=== PATIENT | female | born 1995 | race Caucasian/White ===

== ENCOUNTER → 2020-12-11 | Outpatient (CLI) | payer OTHER ==
--- NOTE | 2020-12-11 12:01 | US ---
EXAMINATION TYPE: US OB >= 14 wk fetus DATE OF EXAM: 12/11/2020 COMPARISON: None CLINICAL HISTORY: 25-year-old female O46.90 Vaginal bleeding during . Vaginal bleeding last night, spotting this AM, no current bleeding TECHNIQUE: Transabdominal (TA) GESTATIONAL AGE / DATING Physician Established: (24 weeks/4 days) EDC: 03/29/21 Dates by LMP: LMP unknown Dates by First Scan: No previous this is first scan Dates by Current Scan: (24 weeks/6 days) EDC: 03/27/21 FINDINGS: SURVEY IUP: Single PLACENTA: Anterior PREVIA: No Previa RD: 13.9 cm Normal CERVICAL LENGTH (transabdominal: norm > 3.0cm): 3.9 cm BIOMETRY PRESENTATION: Vertex LIE: Transverse with head maternal LT BPD: 6.0 cm 24 weeks / 4 days HC: 23.2 cm 25 weeks / 2 days AC: 19.2 cm 24 weeks / 0 days FL: 4.6 cm 25 weeks / 3 days ESTIMATED WEIGHT IN GRAMS: 717 grams ESTIMATED WEIGHT IN LBS/OZ: 1 lbs. 9 oz. WEIGHT PERCENTAGE BASED ON ESTABLISHED DATES: 43% HC/AC: 1.21 (upper limits of normal) FL/AC: 24% Normal HEART RATE: 143 bpm RHYTHM: Normal structures not assessed. IMPRESSION: 1. Single live intrauterine with established gestational age of 24 weeks 4 days. Current ul trasound biometry is concordant at 24 weeks 6 days (43rd percentile for weight). 2. However, note that the HC/AC is upper limits of normal. Follow-up as clinically indicated. 3. No evidence for placenta previa. Cervical length normal at 3.9 cm.
== END | disposition home or self-care (01) ==
LOC: RADUSWWP 10:00
PROVIDERS: ATTEND Obstetrics & Gynecology
DX: O46.92 Antepartum hemorrhage, unspecified, second trimester (principal); Z3A.24 24 weeks gestation of pregnancy
CPT/HCPCS: 76805

== ENCOUNTER 2021-03-22 06:18 | Inpatient (IN) | payer OTHER ==
[2021-03-22] MEDS ORDERED: LIDOCAINE 0.5% (PF) 5 MG/ML (50 ML SDV) SQ PRN (06:50)
[2021-03-22] MEDS ORDERED: OXYTOCIN 10 UNIT/ML 1 ML VIAL IM PRN (06:50)
[2021-03-22] MEDS ORDERED: METHYLERGONOVINE 0.2 MG/ML 1 ML AMP IM PRN (06:50)
[2021-03-22] MEDS ORDERED: CARBOPROST TROMETHAMINE 250 MCG/ML 1 ML AMP IM PRN (06:50)
[2021-03-22] MEDS ORDERED: TERBUTALINE 1 MG/ML VIAL SQ PRN (06:50)
[2021-03-22] MEDS ORDERED: OXYTOCIN 30 UNITS/500 ML NS 30 UNIT in SALINE 1 500ML.BAG IV SCH ×2 (07:00→15:45)
[2021-03-22] MEDS: LACTATED RINGERS 1,000 ML IV SCH ×2 (07:15→14:40)
[2021-03-22 07:32] LABS: Basophils % (A) 0 %; Eosinophils % (A) 1 %; HCT 33.5 % (34.0-46.0); HGB 10.8 gm/dL (11.4-16.0); Hypochromasia Slight; Lymphocytes # (A) 1.6 k/uL (1.0-4.8); Lymphocytes % (A) 21 %; MCH 24.5 pg (25.0-35.0); MCHC 32.4 g/dL (31.0-37.0); MCV 75.5 fL (80.0-100.0); Mean Platelet Volume 8.7; Microcytosis Slight; Monocytes # (A) 0.4 k/uL (0-1.0); Monocytes % (A) 5 %; Neutrophils # (A) 5.4 k/uL (1.3-7.7); Neutrophils % (A) 71 %; Platelet Count 191 k/uL (150-450); Poikilocytosis Slight; RBC 4.43 m/uL (3.80-5.40); RDW 15.4 % (11.5-15.5); WBC 7.6 k/uL (3.8-10.6)
[2021-03-22] MEDS ORDERED: BUTORPHANOL 1 MG/ML 1 ML VIAL IV PRN (08:52)
--- NOTE | 2021-03-22 08:57 | P.HPOB ---
History of Present Illness H&P Date: 03/22/21 Chief Complaint: 39-0/7 weeks, elective induction of labor The patient is a 25-year-old 2 para 1001 was admitted at 39-0/7 weeks as established by last menstrual period and confirmed by second trimester ultrasound. She is admitted for elective induction of labor with all signs reassuring. Her has been entirely uncomplicated though she did transfer into our practice at approximately 26 weeks of gestation. Group B strep status is negative. Obstetrical history: 2 para 1001 with 1 term vaginal delivery without complications. Current statistics are listed in history present illness and has been uncomplicated. Laboratory workup demonstrates a blood type of B+ with a negative antibody screen. Rubella status is immune. The remainder of the laboratory workup was within normal limits. Early Glucola as well as one hour Glucola were within normal limits. Group B strep status is negative. Gynecologic history: Unremarkable with no history of any infections to include STDs. Review of Systems Review of systems is confined to history of present illness. Past Medical History Past Medical History: No Reported History History of Any Multi-Drug Resistant Organisms: None Reported Past Surgical History: No Surgical Hx Reported Past Anesthesia/Blood Transfusion Reactions: No Reported Reaction Past Psychological History: No Psychological Hx Reported Smoking Status: Never smoker Past Drug Use History: None Reported Medications and Allergies Home Medications Medication Instructions Recorded Confirmed Type Pnv,Calcium 72/Iron/Folic Acid 1 tab PO DAILY 03/22/21 03/22/21 History [ Plus Tablet] Allergies Allergy/AdvReac Type Severity Reaction Status Date / Time No Known Allergies Allergy Verified 03/22/21 06:49 Exam Vital Signs Temp Pulse Resp BP Pulse Ox 03/22/21 06:48 98.9 F 107 H 16 124/68 100 Intake and Output 03/21/21 03/22/21 03/22/21 22:59 06:59 14:59 Other: Weight 81.647 kg In general, this is a well-developed, well-nourished white female in no acute distress. Her heart has a regular rhythm and rate without murmur. Her lungs clear to auscultation bilaterally in all [place]. Her abdomen is gravid, nondistended, has normal active bowel sounds, is soft, nontender, and without any palpable masses aside from the uterine fundus. Her extremities without any cyanosis, clubbing, or significant edema and are nontender to palpation bilaterally. Digital cervical examination demonstrates her cervix to be 4 cm dilated, approximately 50% effaced, with the vertex in presentation at -2-3 station. Artificial rupture of membranes is carried out demonstrating clear fluid. Results Result Diagrams: 03/22/21 06:50 Abnormal Lab Results - Last 24 Hours (Table) 03/22/21 Range/Units 06:50 Hgb 10.8 L (11.4-16.0) gm/dL Hct 33.5 L (34.0-46.0) % MCV 75.5 L (80.0-100.0) fL MCH 24.5 L (25.0-35.0) pg Assessment and Plan (1) Term Current Visit: Yes Status: Acute Code(s): Z34.90 - ENCNTR FOR SUPRVSN OF NORMAL , UNSP, UNSP TRIMESTER SNOMED Code(s): 13301458 Plan: The patient is admitted for elective induction per her request. The risks and complications elective induction of been thoroughly discussed and she has unde rstood and agreed to proceed. She will have close maternal and surveillance and expectant management will be practiced. She is an excellent candidate for either IV or epidural analgesia, whichever she may choose.
[2021-03-22] MEDS ORDERED: HYDROCORTISONE 2.5% RECTAL CREAM 30 GM TUBE RECTAL PRN (15:43)
[2021-03-22] MEDS ORDERED: HYDROcodone/APAP 7.5-325MG 1 EACH TAB PO PRN (15:43)
[2021-03-22] MEDS ORDERED: diphenhydrAMINE 50 MG CAP PO PRN (15:43)
[2021-03-22] MEDS ORDERED: ACETAMINOPHEN TAB 325 MG TAB PO PRN (15:43)
[2021-03-22] MEDS ORDERED: diphenhydrAMINE 50 MG/ML 1 ML VIAL IVP PRN ×2 (15:43)
[2021-03-22] MEDS ORDERED: LANOLIN CREAM 5 GM TUBE TOPICAL PRN (15:43)
[2021-03-22] MEDS ORDERED: SIMETHICONE 80 MG CHEWABLE PO PRN (15:43)
[2021-03-22] MEDS ORDERED: diphenhydrAMINE 25 MG CAP PO PRN (15:43)
[2021-03-22] MEDS ORDERED: ZOLPIDEM 5 MG TAB PO PRN (15:43)
[2021-03-22] MEDS ORDERED: BENZOCAINE/MENTHOL SPRAY 1 GM/SPRAY AEROSOL TOPICAL PRN (15:43)
[2021-03-22] MEDS ORDERED: HYDROcodone/APAP 5-325MG 1 EACH TAB PO PRN (15:43)
--- NOTE | 2021-03-22 15:48 | P.PROBDLV ---
Vaginal Delivery Note - . Vaginal Delivery Note: The patient is a 25-year-old 2 para 1001 admitted at 39-0/7 weeks by good dating parameters perches admitted for elective induction of labor with all signs reassuring and a very favorable cervix. Her has been entirely uncomplicated though she did transfer to our practice at approximately 26 weeks of . As noted above, on labor and delivery all signs reassuring. The category 1 heart rate tracing. She underwent Pitocin augmentation and had artificial rupture of membranes carried out demonstrating clear fluid. She made good progress through the latent phase of labor and into the active phase of labor such that the first time she was checked she was known to be 8 cm perches and progressed fairly quickly over the next 1-2 hours to complete and 0 station. She pushed over the course of approximate 2-3 contractions to a normal s pontaneous vaginal delivery of a viable 8 lbs. 2 oz. baby boy with Apgars of 9 at 1 minute and 9 at 5 minutes delivered in the direct occiput anterior position. There was a mild shoulder dystocia likely secondary to the rapidity of the descent through the pelvis which was reduced slowly with Oscar maneuver. The placenta was delivered spontaneously, intact, and grossly normal with a grossly normal, marginally inserted three-vessel cord. There was a small second-degree midline perineal laceration over the site of a previous episiotomy from her first delivery which was repaired in standard fashion using 3-0 chromic catgut without difficulty. Estimated blood loss for the case was approximately 250 mL. There were no complications. All sponge, instrument, and needle counts were correct. Both mother and infant are resting comfortably in recovery.
[2021-03-22] MEDS: IBUPROFEN 600 MG TAB PO SCH ×2 (19:39→23:00)
[2021-03-22 20:51] VITALS: RESP 16
[2021-03-22] MEDS: SENNOSIDES-DOCUSATE SODIUM 1 EACH TAB PO SCH (20:54)
[2021-03-23] MEDS ORDERED: IBUPROFEN 600 MG TAB PO ONE (03:25)
[2021-03-23 07:20] VITALS: PULSE 77
--- NOTE | 2021-03-23 08:50 | P.DS ---
Providers Date of admission: 03/22/21 06:18 Expected date of discharge: 03/23/21 Attending physician: Dmitri Carter Primary care physician: Stated None - Discharge Diagnosis(es) (1) Term Current Visit: Yes Status: Acute (2) Normal spontaneous vaginal delivery Current Visit: Yes Status: Acute Hospital Course: The patient is a 25-year-old 2 para 1001 admitted at 39-0/7 weeks by good dating parameters. She is admitted for elective induction with all signs reassuring. Her was uncomplicated with the patient transferring to our practice at approximately 26 weeks' gestation. Group B strep status is negative. On labor and delivery, she had Pitocin started followed by artificial rupture of membranes. She progressed fairly quickly through the latent and active phase of labor and opted not to have an epidural catheter placed. She ultimately progressed to complete and then pushed fairly quickly to a normal spontaneous vaginal delivery of a viable 8 lbs. 2 oz. baby boy with Apgars of 9 at 1 minute and 9 at 5 it's. There was a mild shoulder dystocia reduced solely with Oscar maneuver. Her course was entirely unremarkable with vital signs being stable and her temperature was afebrile throughout. She was deemed stable for discharge on day 1 and was discharged home to follow-up in the office in 6 weeks' time routinely. Discharge instructions included calling for any significantly increased bleeding or foul-smelling lo roberto, significantly increased fever or abdominal pain, perineal complaints, breast complaints, or anything also concerned her. She was additionally instructed to have nothing in the vagina for at least 6 weeks time to include intercourse. She understood her instructions and agrees to follow up as noted above. Discharge medications included continued vitamins as she has opted to breast-feed. She was otherwise to use [id number] analgesic pain medications as needed. Maternal blood type is B+ and rubella status is immune. Procedures: #1. Pitocin induction #2. Artificial rupture of membranes #3. Normal spontaneous vaginal delivery #4. Repair of perineal laceration Patient Condition at Discharge: Stable Plan - Discharge Summary Discharge Rx Participant: No New Discharge Prescriptions: No Action Pnv,Calcium 72/Iron/Folic Acid [ Plus Tablet] 1 tab PO DAILY Discharge Medication List Pnv,Calcium 72/Iron/Folic Acid [ Plus Tablet] 1 tab PO DAILY 04/26/21 [History] Follow up Appointment(s)/Referral(s): Dmitri Carter MD [STAFF PHYSICIAN] - 6 Weeks Discharge Disposition: HOME SELF-CARE
[2021-03-23 08:57] LABS: Basophils % (A) 0 %; Eosinophils % (A) 0 %; HCT 28.4 % (34.0-46.0); Hypochromasia Moderate; Lymphocytes # (A) 1.5 k/uL (1.0-4.8); Lymphocytes % (A) 14 %; MCHC 31.6 g/dL (31.0-37.0); Mean Platelet Volume 8.6; Microcytosis Slight; Monocytes # (A) 0.5 k/uL (0-1.0); Monocytes % (A) 5 %; Neutrophils # (A) 8.1 k/uL (1.3-7.7); Neutrophils % (A) 79 %; Platelet Count 169 k/uL (150-450); Poikilocytosis Slight; RBC 3.74 m/uL (3.80-5.40); RDW 15.4 % (11.5-15.5); WBC 10.3 k/uL (3.8-10.6)
[2021-03-23] MEDS: SENNOSIDES-DOCUSATE SODIUM 1 EACH TAB PO SCH (10:36)
[2021-03-23 13:26] VITALS: BP 124/57; TEMP 97.8
== END 2021-03-23 16:10 | disposition home or self-care (01) | DRG 807 ==
LOC: 4FBP 06:18
PROVIDERS: ADMIT Obstetrics & Gynecology; ATTEND Obstetrics & Gynecology
PROC: 3E033VJ Introduction of Other Hormone into Peripheral Vein, Percutaneous Approach (ICD-10-PCS; principal; 2021-03-22)
PROC: 10E0XZZ Delivery of Products of Conception, External Approach (ICD-10-PCS; principal; 2021-03-22)
PROC: 0KQM0ZZ Repair Perineum Muscle, Open Approach (ICD-10-PCS; principal; 2021-03-22)
PROC: 10907ZC Drainage of Amniotic Fluid, Therapeutic from Products of Conception, Via Natural or Artificial Opening (ICD-10-PCS; principal; 2021-03-22)
DX: O66.0 Obstructed labor due to shoulder dystocia (principal); Z37.0 Single live birth; O70.1 Second degree perineal laceration during delivery; Z3A.39 39 weeks gestation of pregnancy
CPT/HCPCS: 85025; 86850; 86900; 86901